=== PATIENT | female | born 1975 | race Caucasian/White ===

== ENCOUNTER 2016-10-07 23:17 | Emergency (ER) | payer SELFPAY ==
[2016-10-08] MEDS ORDERED: MORPHINE SULFATE 10 MG/ML INJ IV ONE (00:01)
--- NOTE | 2016-10-08 00:02 | ER Document Report ---
ED General - General Chief Complaint: Flank Pain Stated Complaint: FLANK PAIN Time Seen by Provider: 10/07/16 23:54 Notes: Patient is 41-year-old female presents with complaint of pain in her right back that radiates around the right abdomen. Pain is been intermittent for 1 week. Pain started again tonight after eating fried fish. No vomiting. No fevers. No diarrhea. No hematuria. No dysuria. No recent traumas or injuries. Nothing seems to exacerbate the pain. She says the pain seems to be random. No other complaints at this time. TRAVEL OUTSIDE OF THE [place] IN LAST 30 DAYS: No Past Medical History - Social History Smoking Status: Unknown if Ever Smoked Frequency of alcohol use: None Drug Abuse: None Family History: Reviewed & Not Pertinent Patient has suicidal ideation: No Renal/ Medical History: Denies: Hx Peritoneal Dialysis Review of Systems - Review of Systems Notes: My Normal Review Basic REVIEW OF SYSTEMS: CONSTITUTIONAL : Denies fever, chills, or sweats. Denies recent illness. CARDIOVASCULAR: Denies chest pain. RESPIRATORY: Denies cough, cold, or chest congestion. Denies shortness of breath, difficulty breathing, or wheezing. GASTROINTESTINAL: Right-sided abdominal pain. Denies nausea, vomiting, or diarrhea. GENITOURINARY: Denies difficulty urinating, painful urination, burning, frequency, or blood in urine. FEMALE GENITOURINARY: Denies vaginal bleeding, abnormal or irregular periods. MUSCULOSKELETAL: Back pain SKIN: Denies rash or skin lesions. NEUROLOGICAL: Denies altered mental status or loss of consciousness. Denies headache. Denies weakness or paralysis or loss of use of either side. Denies problems with gait or speech. Denies sensory or motor loss.SYCHIATRIC: Denies anxiety or stress or depression. ALL OTHER SYSTEMS REVIEWED AND NEGATIVE. Physical Exam - Vital signs Vitals: Temp Pulse Resp BP Pulse Ox 98.0 F 75 18 166/94 H 98 10/07/16 23:22 10/07/16 23:22 10/07/16 23:22 10/07/16 23:22 10/07/16 23:22 - Notes Notes: General Appearance: Well nourished, alert, cooperative, no acute distress, mild to moderate obvious discomfort. Vitals: reviewed, See vital signs table. Head: no swelling or tenderness to the head Eyes: PERRL, EOMI, Conjuctiva clear Mouth: No decreasd moisture Lungs: No wheezing, No rales, No rhonci, No accessory muscle use, good air exchange bilaterally. Heart: Normal rate, Regular rythm, No murmur, no rub Abdomen: Normal BS, soft, No rigidity, mild right upper quadrant abdominal tenderness to palpation, No guarding, no rebound, no abdominal masses, no organomegaly Back: No pain to palpation over the thoracic or lumbar paraspinal musculature. Patient does have some pinpoint pain to palpation over the posterior right rib. This is approximately the 10th or 11th rib. Extremities: strength 5/5 in all extremities, good pulses in all extremities, no swelling or tenderness in the extremities, no edema. Skin: warm, dry, appropriate color, no rash Neuro: speech clear, oriented x 3, normal affect, responds appropriately to questions. Course - Re-evaluation Re-evalutation: 10/09/16 00:[address] Herrera, urologist, on the phone about the patient's laboratory findings. I did inform the patient has a 9 mm proximal stone as well as evidence of UTI on urinalysis. Also informed him that the patient does not have a leukocytosis on blood work and is afebrile and is not septic appearing and is well-appearing. He says if the patient is pain controlled he will follow her up first thing in the morning in his office. He came to the office number and office address. Patient is pain controlled and explained to her the plan. She is agreeable to this. Informed her she must return to the ER immediately if she has any increasing pain, vomiting, fevers, or feels unwell. Patient agrees with plan and will be discharged home with close follow- up in the morning with Dr. Herrera. Dictation of this chart was performed using voice recognition software; therefore, there may be some unintended grammatical errors. - Vital Signs Vital signs: Temp Pulse Resp BP Pulse Ox 97.8 F 64 17 141/89 H 98 10/08/16 03:49 10/08/16 03:49 10/08/16 03:49 10/08/16 03:49 10/08/16 03:49 - Laboratory Result Diagrams: 10/08/16 00:10 10/08/16 00:10 Laboratory results interpreted by me: 10/08/16 10/08/16 00:10 01:24 Carbon Dioxide 21 L BUN 22 H Est GFR ( Amer) 59 L Est GFR (Non-Af Amer) 49 L Urine Blood SMALL H Ur Leukocyte Esterase LARGE H Discharge - Discharge Clinical Impression: Kidney stone on right side UTI (urinary tract infection) Qualifiers: Urinary tract infection type: site unspecified Hematuria presence: with hematuria Qualified Code(s): N39.0 - Urinary tract infection, site not specified Condition: Good Disposition: HOME, SELF-CARE Instructions: Oral Narcotic Medication ([facility]) Additional Instructions: You have a 9mm kidney stone on the right side. You also have evidence of infection on your urinalysis. We will also send you home on an antibiotic. You were given a dose of Rocephin, an IV antibiotic. I did speak with Dr. Herrera , urologist, who wants to see you in his office tomorrow. His office number is [phone]. The office is: [facility] [address] [place] [address] Please call the office first thing this morning and inform the office staff that you were seen in the ER and your case was discussed with Dr. Herrera and he wants to see you today in his office. Please return to the ER immediately if you have intractable pain, fevers, vomiting, or feel that your are worsening. Prescriptions: Cephalexin Monohydrate [Keflex 500 mg Capsule] 500 mg PO QID #28 capsule Forms: Return to Work
[2016-10-08 00:27] LABS: ABSOLUTE EOSINOPHILS # (AUTO) 0.1 10^3/uL (0.0-0.6); ABSOLUTE LYMPHOCYTES (AUTO) 1.7 10^3/uL (0.5-4.7); ABSOLUTE MONOCYTES (AUTO) 0.6 10^3/uL (0.1-1.4); ABSOLUTE NEUT (AUTO) 4.9 10^3/uL (1.7-8.2); BASOPHILS % (AUTO) 0.6 % (0-2); EOSINOPHILS % (AUTO) 1.9 % (0-6); HEMATOCRIT 36.6 % (36.0-47.0); HEMOGLOBIN 12.2 g/dL (12.0-15.5); LYMPHOCYTES % (AUTO) 22.9 % (13-45); MEAN CORPUSCULAR HEMOGLOBIN 27.3 pg (27.0-33.4); MEAN CORPUSCULAR HGB CONC 33.3 g/dL (32.0-36.0); MEAN CORPUSCULAR VOLUME 82 fl (80-97); MONOCYTES % (AUTO) 8.1 % (3-13); RED BLOOD COUNT 4.46 10^6/uL (3.72-5.28); SEGMENTED NEUTROPHILS % (AUTO) 66.5 % (42-78); WHITE BLOOD COUNT 7.4 10^3/uL (4.0-10.5)
[2016-10-08 00:47] LABS: ALANINE AMINOTRANSFERASE 22 U/L (9-52); ALBUMIN 4.1 g/dL (3.5-5.0); ALKALINE PHOSPHATASE 88 U/L (38-126); ANION GAP 13 (5-19); ASPARTATE AMINO TRANSFERASE 17 U/L (14-36); BILIRUBIN,DIRECT 0.4 mg/dL (0.0-0.4); BILIRUBIN,TOTAL 0.5 mg/dL (0.2-1.3); BLOOD UREA NITROGEN 22 mg/dL (7-20); CALCIUM 9.7 mg/dL (8.4-10.2); CARBON DIOXIDE 21 mmol/L (22-30); CHLORIDE 107 mmol/L (98-107); CREATININE RESULT 1.21 mg/dL (0.52-1.25); GLUCOSE 104 mg/dL (75-110); LIPASE 154.2 U/L (23-300); POTASSIUM 4.5 mmol/L (3.6-5.0); SODIUM 140.5 mmol/L (137-145); TOTAL PROTEIN 6.8 g/dL (6.3-8.2)
[2016-10-08 01:41] LABS: APPEARANCE,URINE SLIGHTLY-CLOUDY; BILIRUBIN,URINE NEGATIVE (NEGATIVE); GLUCOSE, URINE NEGATIVE (NEGATIVE); KETONES,URINE NEGATIVE (NEGATIVE); LEUKOCYTE ESTERASE,URINE LARGE (NEGATIVE); NITRITE,URINE NEGATIVE (NEGATIVE); PROTEIN,URINE NEGATIVE (NEGATIVE); UROBILINOGEN,URINE NEGATIVE mg/dL (<2.0)
--- NOTE | 2016-10-08 02:43 | RADIOLOGY REPORT (SQ) ---
EXAM DESCRIPTION: U/S ABDOMEN LTD W/DOPPLER COMPLETED DATE/TIME: 10/08/2016 2:25 am REASON FOR STUDY: RUQ abdominal pain COMPARISON: None. TECHNIQUE: Dynamic and static grayscale images acquired of the abdomen and recorded on PACS. Additio nal selected color Doppler and spectral images recorded. LIMITATIONS: None. FINDINGS: PANCREAS: No masses. Visualized pancreatic duct normal caliber. LIVER: No masses. Echotexture normal. LIVER VASCULATURE: Normal directional flow of the main portal vein and hepatic veins. GALLBLADDER: Small amount of sludge. Normal wall thickness. No pericholecystic fluid. ULTRASOUND-DETECTED VARMA'S SIGN: Negative. INTRAHEPATIC DUCTS AND COMMON DUCT: CBD and intrahepatic ducts normal caliber. No filling defects. INFERIOR VENA CAVA: Normal flow. AORTA: No aneurysm. RIGHT KIDNEY: Normal size. Normal echogenicity. No solid or suspicious masses. Hydronephrosis. No c alcifications. PERITONEAL AND RIGHT PLEURAL SPACE: No ascites or effusions. OTHER: No other significant findings. IMPRESSION: 1. SMALL AMOUNT OF SLUDGE IN THE GALLBLADDER. 2. HYDRONEPHROSIS OF THE RIGHT KIDNEY. TECHNICAL DOCUMENTATION: JOB ID: [id number] [employer]- All Rights Reserved
[2016-10-08] MEDS ORDERED: CEFTRIAXONE INJ 1000 MG VIAL IV ONE (02:48)
--- NOTE | 2016-10-08 02:48 | RADIOLOGY REPORT (SQ) ---
EXAM DESCRIPTION: CT LTD RENAL STONE PROTOCOL ON COMPLETED DATE/TIME: 10/08/2016 2:29 am REASON FOR STUDY: right flank pain COMPARISON: None. TECHNIQUE: CT scan of the abdomen and pelvis performed without intravenous or oral contrast. Images reviewed with lung, soft tissue, and bone windows. Reconstructed coronal and sagittal MPR images revi ewed. All images stored on PACS. All CT scanners at this facility use dose modulation, iterative reconstruction, and/or weight based d osing when appropriate to reduce radiation dose to as low as reasonably achievable (ALARA). [facility]: Dose Right [facility]: CareDose [facility]: Dose Right [facility]: Teradose 4D [facility]: Smart [email or web address] RADIATION DOSE: Up-to-date CT equipment and radiation dose reduction techniques were employed. CTDIv ol: 12.9 mGy. DLP: 706 mGy-cm.mGy. LIMITATIONS: None. FINDINGS: LOWER CHEST: No significant findings. No nodules or infiltrates. NON-CONTRASTED LIVER, SPLEEN, ADRENALS: Evaluation limited by lack of IV contrast. No identified sign ificant masses. PANCREAS: No masses. No peripancreatic inflammatory changes. GALLBLADDER: No identified stones by CT criteria. No inflammatory changes to suggest cholecystitis. RIGHT KIDNEY AND URETER: Probable cortical cyst. No suspicious masses. Assessment limited by lack of IV contrast. Several calyceal calculi. 9 mm calculus in the proximal right ureter. Average Houns field units 950. Moderate hydronephrosis. LEFT KIDNEY AND URETER: Probable cortical cyst. No suspicious masses. Assessment limited by lack of IV contrast. Several calyceal calculi. No hydronephrosis or hydroureter. AORTA AND RETROPERITONEUM: No aneurysm. No retroperitoneal masses or adenopathy. BOWEL AND PERITONEAL CAVITY: No obvious masses or inflammatory changes. No free fluid. APPENDIX: Normal. PELVIS, BLADDER, AND ABDOMINAL WALL:No abnormal masses. No free fluid. Bladder normal. BONES: No significant findings. OTHER: No other significant finding. IMPRESSION: 1. SEVERAL CALYCEAL CALCULI IN BOTH KIDNEYS. 9 MM CALCULUS IN THE PROXIMAL RIGHT URETER WITH MODERAT E HYDRONEPHROSIS. 2. PROBABLE CORTICAL CYSTS IN BOTH KIDNEYS. 3. NO OTHER SIGNIFICANT OR ACUTE PROCESS IN THE ABDOMEN OR PELVIS. TECHNICAL DOCUMENTATION: JOB ID: [id number] Quality ID # [id number]: Final reports with documentation of one or more dose reduction techniques (e.g., Au tomated exposure control, adjustment of the mA and/or kV according to patient size, use of iterative reconstruction technique) 2010 [employer]- All Rights Reserved
[2016-10-08 03:50] VITALS: BP 141/89
[2016-10-08] MEDS ORDERED: ONDANSETRON ODT 4 MG TAB (6 TAB/DSPK) PO PRN (03:54)
[2016-10-08] MEDS ORDERED: HYDROCODONE/ACETAMINOPHEN 5-325 MG 6 TAB/DSPK PO PRN (03:54)
[2016-10-08] MEDS ORDERED: ONDANSETRON ODT 4 MG TAB (6 TAB/DSPK) ONE ×2 (04:17)
[2016-10-08] MEDS ORDERED: HYDROCODONE/ACETAMINOPHEN 5-325 MG 6 TAB/DSPK ONE (04:17)
== END 2016-10-08 04:05 | disposition home or self-care (01) ==
LOC: ER 23:17
DX: N20.0 Calculus of kidney (principal); N39.0 Urinary tract infection, site not specified; R10.9 Unspecified abdominal pain; M54.9 Dorsalgia, unspecified
CPT/HCPCS: 99284; 96375; 96365; 36415; 83690; 85025; 81025; 80053; 81001; 76705; 93976; 76380; J2270; J0696

== ENCOUNTER 2016-10-15 13:23 | Emergency (ER) | payer SELFPAY ==
[2016-10-15 13:36] VITALS: BP 153/95
[2016-10-15] MEDS ORDERED: ONDANSETRON 4 MG TAB.RAPDIS PO ONE (13:55)
[2016-10-15] MEDS ORDERED: OXYCODONE-ACETAMINOPHEN 5-325 MG TABLET PO ONE (13:55)
[2016-10-15] MEDS ORDERED: KETOROLAC TROMETHAMINE 60 MG/2 ML SDV IM ONE (13:55)
--- NOTE | 2016-10-15 13:57 | ER Document Report ---
ED General - General Chief Complaint: Flank Pain Stated Complaint: BACK PAIN Time Seen by Provider: 10/15/16 13:55 Notes: Patient presents with 1 day of left flank pain. It is severe and constant. It does radiate around the left abdomen. It is sharp. She states it feels similar to previous kidney stone pain. Approximate 1 week ago she was seen here and diagnosed with bilateral kidney stones. She has been unable to follow- up due to not having insurance. She denies any vaginal symptoms. She has had no nausea or vomiting. No fevers. TRAVEL OUTSIDE OF THE [place] IN LAST 30 DAYS: No - Related Data Allergies/Adverse Reactions: No Known Allergies Allergy (Verified 10/15/16 13:29) Past Medical History - General Information source: Patient - Social History Smoking Status: Never Smoker Frequency of alcohol use: None Drug Abuse: None Family History: Reviewed & Not Pertinent Patient has suicidal ideation: No Patient has homicidal ideation: No Renal/ Medical History: Reports: Hx Kidney Stones. Denies: Hx Peritoneal Dialysis Review of Systems - Review of Systems Constitutional: denies: Chills, Fever Cardiovascular: denies: Chest pain, Palpitations Respiratory: denies: Cough, Short of breath Gastrointestinal: denies: Diarrhea, Vomiting Genitourinary: denies: Burning, Dysuria -: Yes All other systems reviewed and negative Physical Exam - Vital signs Vitals: Temp Pulse Resp BP Pulse Ox 97.8 F 80 20 158/119 H 100 10/15/16 13:30 10/15/16 13:30 10/15/16 13:30 10/15/16 13:30 10/15/16 13:30 Interpretation: Hypertensive - General General appearance: Appears well, Alert - HEENT Head: Normocephalic, Atraumatic Eyes: Normal Pupils: PERRL - Respiratory Respiratory status: No respiratory distress Chest status: Nontender Breath sounds: Normal Chest palpation: Normal - Cardiovascular Rhythm: Regular Heart sounds: Normal auscultation Murmur: No - Abdominal Inspection: Normal Distension: No distension Bowel sounds: Normal Tenderness: Nontender Organomegaly: No organomegaly - Back Back: Normal, Nontender - Extremities General upper extremity: Normal inspection, Nontender, Normal color, Normal ROM , Normal temperature General lower extremity: Normal inspection, Nontender, Normal color, Normal ROM , Normal temperature, Normal weight bearing. No: Saira's sign - Neurological Neuro grossly intact: Yes Cognition: Normal Orientation: AAOx4 Big Arm Coma Scale Eye Opening: Spontaneous Big Arm Coma Scale Verbal: Oriented Guero Coma Scale Motor: Obeys Commands Big Arm Coma Scale Total: 15 Speech: Normal Motor strength normal: LUE, RUE, LLE, RLE Sensory: Normal - Psychological Associated symptoms: Normal affect, Normal mood - Skin Skin Temperature: Warm Skin Moisture: Dry Skin Color: Normal Course - Re-evaluation Re-evalutation: 10/15/16 14:46 Patient's creatinine is slightly elevated. Patient will be educated about the need to stay well hydrated and have this rechecked within the next 4-5 days. - Vital Signs Vital signs: Temp Pulse Resp BP Pulse Ox 97.8 F 80 20 153/95 H 100 10/15/16 13:30 10/15/16 13:30 10/15/16 13:30 10/15/16 13:34 10/15/16 13:30 - Laboratory Result Diagrams: 10/15/16 14:15 10/15/16 14:15 Laboratory results interpreted by me: 10/15/16 10/15/16 10/15/16 14:15 14:15 14:15 WBC 12.0 H Hct 35.8 L RDW 14.2 H Seg Neutrophils % 81.0 H Lymphocytes % 10.8 L Absolute Neutrophils 9.7 H BUN 23 H Creatinine 1.42 H Est GFR ( Amer) 49 L Est GFR (Non-Af Amer) 41 L Urine Blood LARGE H Discharge - Discharge Clinical Impression: Ureteral stone, Hypertension, Renal insufficiency Condition: Stable Disposition: HOME, SELF-CARE Instructions: High Blood Pressure ([facility]), Kidney Stone ([facility]) Additional Instructions: Your kidney function is slightly depressed today your creatinine level reflects this with a value of 1.41. It is very important that you have your creatinine rechecked in the next 4-5 days. If you are unable to have this done by her primary care physician and please return to the emergency department for a recheck of your creatinine. Please try to drink lots of fluids and stay well- hydrated. Please follow up with urology as previously instructed Prescriptions: Oxycodone HCl/Acetaminophen [Percocet 5-325 mg Tablet] 1 - 2 tab PO Q4H PRN #15 tablet PRN Reason: Forms: Elevated Blood Pressure Referrals: ARCADIO MANZO MD [ACTIVE STAFF] - Follow up as needed
[2016-10-15 14:29] LABS: ABSOLUTE LYMPHOCYTES (AUTO) 1.3 10^3/uL (0.5-4.7); ABSOLUTE MONOCYTES (AUTO) 0.9 10^3/uL (0.1-1.4); ABSOLUTE NEUT (AUTO) 9.7 10^3/uL (1.7-8.2); BASOPHILS % (AUTO) 0.3 % (0-2); EOSINOPHILS % (AUTO) 0.3 % (0-6); HEMATOCRIT 35.8 % (36.0-47.0); HEMOGLOBIN 12.1 g/dL (12.0-15.5); HGB HCT DIFFERENCE 0.5; LYMPHOCYTES % (AUTO) 10.8 % (13-45); MEAN CORPUSCULAR HEMOGLOBIN 27.1 pg (27.0-33.4); MEAN CORPUSCULAR HGB CONC 33.7 g/dL (32.0-36.0); MEAN CORPUSCULAR VOLUME 81 fl (80-97); MONOCYTES % (AUTO) 7.6 % (3-13); RED BLOOD COUNT 4.45 10^6/uL (3.72-5.28); RED CELL DISTRIBUTION WIDTH 14.2 % (11.5-14.0)
[2016-10-15 14:36] LABS: APPEARANCE,URINE SLIGHTLY-CLOUDY; BILIRUBIN,URINE NEGATIVE (NEGATIVE); GLUCOSE, URINE NEGATIVE (NEGATIVE); KETONES,URINE NEGATIVE (NEGATIVE); LEUKOCYTE ESTERASE,URINE NEGATIVE (NEGATIVE); NITRITE,URINE NEGATIVE (NEGATIVE); PROTEIN,URINE NEGATIVE (NEGATIVE); URINE SPECIFIC GRAVITY 1.004; UROBILINOGEN,URINE NEGATIVE mg/dL (<2.0)
[2016-10-15 14:40] LABS: ANION GAP 10 (5-19); BLOOD UREA NITROGEN 23 mg/dL (7-20); CALCIUM 9.8 mg/dL (8.4-10.2); CARBON DIOXIDE 24 mmol/L (22-30); CHLORIDE 107 mmol/L (98-107); CREATININE RESULT 1.42 mg/dL (0.52-1.25); GLUCOSE 93 mg/dL (75-110); POTASSIUM 4.2 mmol/L (3.6-5.0); SODIUM 141.3 mmol/L (137-145)
== END 2016-10-15 14:56 | disposition home or self-care (01) ==
LOC: ER 13:23
DX: N20.1 Calculus of ureter (principal); I10 Essential (primary) hypertension; N28.9 Disorder of kidney and ureter, unspecified; R10.9 Unspecified abdominal pain
CPT/HCPCS: 99284; 96372; 36415; 85025; 81025; 80048; 81001; J1885; S0119